=== PATIENT | female | born 1950 | race Caucasian/White ===

== ENCOUNTER 2018-04-13 11:41 | Day surgery (SDC) | payer MEDICARE, BC ==
[~2018-04-13] VITALS: Ht 152.4 cm; Wt 95.5 kg
[2018-04-13] MEDS ORDERED: LIDOcaine Viscous 15ml cup ONE (12:20)
[2018-04-13] MEDS ORDERED: fentaNYL/PF 50MCG/1 ML 2ML syringe ONE (12:20)
[2018-04-13] MEDS ORDERED: MIDAZolam 5mg/5ml vial ONE (12:20)
[2018-04-13] MEDS ORDERED: FLUT1BLS3 INH (12:43)
[2018-04-13] MEDS ORDERED: ASPI1CPM9 PO (12:44)
[2018-04-13] MEDS ORDERED: ATOR40TA71 PO (12:45)
[2018-04-13] MEDS ORDERED: BISO5TAB PO (12:45)
[2018-04-13] MEDS ORDERED: FLUO20CA22 PO (12:47)
[2018-04-13] MEDS ORDERED: AMLO1CAP8 PO (12:47)
[2018-04-13] MEDS ORDERED: FLUT16SP2 BOTHNARES (12:48)
[2018-04-13] MEDS ORDERED: ANAS1TAB PO (12:48)
[2018-04-13] MEDS ORDERED: CETI-102 PO (12:49)
[2018-04-13 12:54] VITALS: BP 174/95
[2018-04-13 13:30] VITALS: BP 154/79
[2018-04-13 13:40] VITALS: BP 163/79
[2018-04-13 13:50] VITALS: BP 169/85
[2018-04-13 14:00] VITALS: BP 175/85
== END 2018-04-13 14:08 | disposition home or self-care (01) ==
LOC: GI LAB 11:41
PROVIDERS: ATTEND Internal Medicine Gastroenterology
DX: K22.2 Esophageal obstruction (principal); K29.50 Unspecified chronic gastritis without bleeding; K44.9 Diaphragmatic hernia without obstruction or gangrene; K21.0 Gastro-esophageal reflux disease with esophagitis; I10 Essential (primary) hypertension; J45.998 Other asthma; Z90.710 Acquired absence of both cervix and uterus; Z90.13 Acquired absence of bilateral breasts and nipples; Z92.21 Personal history of antineoplastic chemotherapy; Z85.3 Personal history of malignant neoplasm of breast; Z72.89 Other problems related to lifestyle; Z91.041 Radiographic dye allergy status; Z79.82 Long term (current) use of aspirin; Z86.73 Personal history of transient ischemic attack (TIA), and cerebral infarction without residual deficits; Z79.899 Other long term (current) drug therapy; Z98.890 Other specified postprocedural states
CPT/HCPCS: 43239; 43249; C1726; G0500; J2250; J3010; J7030; 88305; 88342; A4620